=== PATIENT | female | born 1965 | race African-American/Black ===

== ENCOUNTER → 2020-08-14 | Outpatient (CLI) | payer SELFPAY | END | disposition home or self-care (01) | LOC: RESCLI 13:18 | PROVIDERS: ATTEND Emergency Medicine | DX: I10 Essential (primary) hypertension (principal); E11.9 Type 2 diabetes mellitus without complications; E78.5 Hyperlipidemia, unspecified; I25.10 Atherosclerotic heart disease of native coronary artery without angina pectoris; I25.2 Old myocardial infarction; Z23 Encounter for immunization; Z79.899 Other long term (current) drug therapy; Z98.890 Other specified postprocedural states ==